=== PATIENT | male | born 1970 | race Two or more races ===

== ENCOUNTER 2025-05-16 11:15 | Emergency (ER) | payer OTHER ==
[~2025-05-16] VITALS: Ht 167.6 cm; Wt 77.1 kg
[2025-05-16] MEDS ORDERED: PROMETHAZINE HCL 25 MG/ML AMPUL ONE (13:08)
[2025-05-16] MEDS ORDERED: PROMETHAZINE HCL 25 MG/ML AMPUL IM ONE (13:15)
[2025-05-16 13:27] LABS: BASO % 0.9 % (0.1-1.2); EOS # 0.06 (0.04-0.54); EOS % 0.7 % (0.7-7.0); LYMPH # 1.85 (1.18-3.74); LYMPH % 22.7 % (19.3-53.1); MEAN PLATELET VOLUME 10.00 fl (9.4-12.4); MONO # 0.67 (0.24-0.82); MONO % 8.2 % (4.7-12.5); NEUT # 5.48 (1.56-6.13); NEUT % 67.1 % (34.0-71.1); RED CELL DISTRIBUTION WIDTH 13.2 % (11.6-14.4)
[2025-05-16 13:59] LABS: BUN CREA RATIO 14.0 (7.0-25.0); CREATININE SERUM 0.86 mg/dL (0.70-1.30); GFR 92.67; GLUCOSE FASTING 100.0 mg/dL (65-100); OSMOLALITY SERUM 289.0 MOSM/KG (275-295)
[2025-05-16] MEDS ORDERED: ONDANSETRON HCL 2 MG/ML VIAL IV ONE (15:30)
== END 2025-05-16 15:17 | disposition home or self-care (01) ==
LOC: ER 11:16
PROVIDERS: General Practice
DX: R42 Dizziness and giddiness (principal); G43.909 Migraine, unspecified, not intractable, without status migrainosus